=== PATIENT | female | born 2000 ===

== ENCOUNTER 2024-08-22 09:10 | Emergency (ER) | payer OTHER, SELFPAY ==
[2024-08-22 09:11] VITALS: BP 115/81
[2024-08-22 10:29] VITALS: BMI 22.3
[2024-08-22 10:32] VITALS: BP 112/79
--- NOTE | 2024-08-22 10:58 | ED.GENMED ---
Addendum entered and electronically signed by BLACK Osorio 08/22/24 14:58:
Urinalysis reviewed patient has 16�20 white blood cells however greater than 30 squamous cells negative nitrates and no UTI symptoms will send for culture
Original Note:
History of Present Illness
General
Chief Complaint: Headache
Source: patient
Exam Limitations: none
Time Seen by Provider: 08/22/24 10:28
Nursing documentation reviewed up to this point in time: agreed with
History of Present Illness
History of Present Illness:
23 yr old female approx 10 wks (last menstrual period in May) presents today for evaluation of nausea vomiting. Patient has had nausea intermittent vomiting throughout the however it has worsened over the past 24 hours. In addition
she mentioned she had diarrhea yesterday and a little bit today as well. No other sick contacts at home. She also complains of right sided headache. She does not typically get headaches in the past usually once a month that is similar to this
headache but this headache is worse than normal. She denies any recent illness fever chills. Denies any sore throat. She denies any abdominal pain cramping or bleeding. She is followed by [facility] [employer]. She has had a previous normal
ultrasound.
Review of Systems
Review of Systems
Allergies reviewed?: Yes
All Other Systems: ROS reviewed and negative except as documented in HPI and ROS
Constitutional: Reports no symptoms; Denies fever, fatigue or chills
Respiratory: Reports no symptoms
Cardiac: Reports no symptoms
ABD/GI: Reports nausea and vomiting; Denies abdominal pain
: Reports no symptoms; Denies flank pain, urgency or discharge
Musculoskeletal: Reports no symptoms
Skin: Reports no symptoms
Neurological: Reports no symptoms
Psychiatric: Reports no symptoms
Phy Exam
General Physical Exam
General Presentation: no apparent distress
General age: appears stated age
General Skin: warm and dry
General Habitus: normal
General Mental: alert
General Hydration: dry mucous membranes
Cardiovascular Exam
Cardiovascular Exam: tachycardia
Pulmonary Exam
Pulmonary Exam: lungs clear and no respiratory distress
Gastrointestinal Exam
Gastrointestinal Exam: non tender and soft
Neurological Exam
Neurological Exam: alert and oriented x3
Musculoskeletal Exam
Musculoskeletal Exam: full ROM
Skin Exam
Skin Exam: normal color and warm/dry
Psychiatric Exam
Psychiatric Exam: normal mood/affect
Course
Orders/Labs/Results
Orders:
Orders
08/22/24 11:01
IV Insert/Care/Rem.- Treatment PRN
0.9% Sodium Chloride 1000 ml [Nss] 1,000 ml IV BOLUS
Ondansetron Injectable [Zofran] 4 mg IV NOW STA
08/22/24 11:02
Test Result ONCE
08/22/24 11:06
Complete Blood Count/With Diff Urgent
Comprehensive Metabolic Panel Urgent
HCG, Urine Qualitative Screen Urgent
Date Specimen was Collected: 08/22/24
Time Specimen was Collected: 11:05
Urinalysis Reflex To Culture Urgent
Date Specimen was Collected: 08/22/24
Time Specimen was Collected: 11:05
Urine Microscopic Reflex Cult Urgent
Urine Culture Urgent
WENDI Source: U
Specimen Description:
Date Specimen was Collected: 08/22/24
Time Specimen was Collected: 11:05
08/22/24 13:11
Acetaminophen [Tylenol] 650 mg PO NOW STA
Abnormal Lab Results
08/22/24
11:06
WBC 11.1 H 10^3/uL
(4.8-10.8)
MPV 10.6 H fL
(7.4-10.4)
Abs Immat Gran (auto) 0.1 H 10^3/uL
(0-0.05)
Absolute Neuts (auto) 8.9 H 10^3/uL
(1.4-6.5)
Neutrophils % 79.8 H %
(42.2-75.2)
Lymphocytes % 13.8 L %
(20.5-51.1)
Chloride 108 H mmol/L
(98-107)
Creatinine 0.4 L mg/dL
(0.6-1.0)
Leukocyte Esterase Rfl 3+ A
(Negative)
Urine WBC (Reflex) 16-20 A /HPF
(0-5)
Urine Bacteria (Reflex) Many A
(Negative)
Urine Albumin (Reflex) 2+ A
(Neg - Trace)
08/22/24 11:06
08/22/24 11:06
Vital Signs
Initial and Last Documented VS:
Initial Vital Signs
Temp Pulse Resp BP Pulse Ox
97.9 F 115 16 115/81 98
08/22/24 09:11 08/22/24 09:11 08/22/24 09:11 08/22/24 09:11 08/22/24 09:11
Last Documented Vital Signs
Temp Pulse Resp BP Pulse Ox
97.9 F 107 20 101/69 97
08/22/24 09:11 08/22/24 12:01 08/22/24 12:01 08/22/24 13:00 08/22/24 13:00
Work Counselor consulted with Physician
Work Counselor consulted with physician?: Yes
Name of Physician Consulted: Pallavi
MDM/Problems Addressed
MDM/Problems Addressed:
Patient is a 23-year-old female presenting for nausea vomiting also had diarrhea yesterday little bit this morning. She also complains of a headache. She has had some nausea with but is not able to tolerate fluids over the past
24 hours. She also complains of a headache. Simply gets headaches this headache is the same as her previous headaches only slightly worse. Patient presents awake alert she does appear mildly dehydrated on exam. She is mildly tachycardic on
arrival. She had no complaints denies abdominal pain or bleeding. She was given Zofran and fluids here along with Tylenol feeling much better she was able to drink pardeep peter and actually had some small crackers. will give second liter
however patient is clinically better and stable for discharge home. Patient has not vomited here and has had no episodes of diarrhea. She does have prescription for Diclegis at home
*Pulse Oximetry
Patient hypoxic: no
*Critical Care Note
Total Time (30-74mins, 75-104mins- exclusive of procedures): Not Applicable
ED Attending Note
-
Portions of this chart may have been created with voice recognition software.� Occasional wrong word or��sound alike� substitutions may have occurred due to the inherent limitations of voice recognition software.
Discharge Plan
Departure
Patient Disposition: Home (Routine Discharge)
Date of Disposition: 08/22/24
Time of Disposition: 14:08
Patient with high blood pressure during this ER visit?: No
Covid-19: Not Applicable
Discharge Problem:
Nausea & vomiting, Diarrhea
Instructions: Acute Diarrhea, Acute Nausea and Vomiting
Prescriptions:
No Action
1 tab PO DAILY
Referrals:
NONE,* [Family Provider] -
Activity Restrictions/Additional Instructions:
You may take Diclegis at home as previously prescribed by your [employer]. Clear fluid for the next 24 hours followed bland solid foods. Return if any worsening of symptoms. Follow-up with your [employer] in the next several days.
Interventions
Interventions:
*Risk Screen - Suicide Last Done: 08/22/24 09:14
*General Assessment Last Done: 08/22/24 11:12
*Neglect/Abuse Screening Last Done: 08/22/24 09:14
*ED- Fall Risk Assessment Last Done: 08/22/24 10:37
*ED COVID-19 Vaccine History Last Done: 08/22/24 10:29
ED- Neurological Assessment Last Done: 08/22/24 10:37
Discharge Date and Time
Print Language: CZECH
[2024-08-22] MEDS: NSS 1000 IV (11:09)
[2024-08-22] MEDS: ZOFRAN 4 MG IV (11:09)
[2024-08-22 11:15] LABS: Urine Albumin 2+ (Neg - Trace); Urine Bilirubin Negative (Negative); Urine Character Clear (Clear); Urine Color Yellow; Urine Glucose Negative (Negative); Urine Ketone Negative (Negative); Urine Leukocyte 3+ (Negative); Urine Nitrite Negative (Negative); Urine Occult Blood Negative (Negative); Urine Specific Gravity 1.015 (<1.030); Urine Urobilinogen Negative (Neg - 1+)
[2024-08-22 11:25] LABS: HCG, Urine Qualitative Screen Positive
[2024-08-22 11:28] LABS: % Basophils 0.4 % (0-2); % Eosinophils 0.7 % (0-6); % Immature Granulocytes 0.4 % (0-0.5); % Lymphocytes 13.8 % (20.5-51.1); % Monocytes 4.9 % (1.7-9.3); % Neutrophils 79.8 % (42.2-75.2); Absolute Eosinophils 0.1 10^3/uL (0-0.7); Absolute Immature Granulocytes 0.1 10^3/uL (0-0.05); Absolute Lymphocytes 1.5 10^3/uL (1.2-3.4); Absolute Monocytes 0.6 10^3/uL (0.1-0.6); Absolute Neutrophils 8.9 10^3/uL (1.4-6.5); Hematocrit 38.8 % (37.0-47.0); Hemoglobin 13.4 g/dL (12.0-16.0); Mean Corp Hgb Conc. 34.5 g/dL (33.0-37.0); Mean Corpuscular Hgb 29.7 pg (27.0-31.0); Mean Platelet Volume 10.6 fL (7.4-10.4); Nucleated Red Blood Cells % 0 %; Platelet Count 259 10^3/uL (130-400); Red Blood Cell Count 4.51 10^6/uL (4.20-5.40); Red Cell Dist. Width 12.4 % (11.5-14.5); White Blood Cell Count 11.1 10^3/uL (4.8-10.8)
[2024-08-22 11:29] LABS: ALT (SGPT) 20 U/L (0-35); AST (SGOT) 21 U/L (14-36); Albumin 4.1 g/dl (3.5-5.0); Alkaline Phosphatase 63 U/L (38-126); Blood Urea Nitrogen 9 mg/dl (7-17); Calcium 10.1 mg/dl (8.4-10.2); Carbon Dioxide 23 mmol/L (22-30); Chloride 108 mmol/L (98-107); Estimated Creatinine Clearance > 125 ml/min; Glucose 88 mg/dl (70-99); Potassium 3.9 mmol/L (3.5-5.1); Sodium 139 mmol/L (135-145); Total Bilirubin 0.6 mg/dl (0.2-1.3); Total Protein 7.1 g/dl (6.3-8.2); eGFR > 60.00
[2024-08-22 12:01] VITALS: BP 92/70
[2024-08-22 13:00] VITALS: BP 101/69
[2024-08-22] MEDS: TYLENOL 650 MG PO (13:23)
[2024-08-22 13:55] LABS: Urine Squamous Cell >30 /LPF (Few)
[2024-08-22 13:56] LABS: Urine Red Blood Cell 0-2 /HPF (0-2)
[2024-08-22 13:57] LABS: Urine Bacteria Many (Negative); Urine White Cell 16-20 /HPF (0-5)
[2024-08-22 14:00] VITALS: BP 101/71
== END 2024-08-22 15:04 | disposition home or self-care (01) ==
LOC: EMR 09:10
PROVIDERS: Nurse Practitioner; EMERGENCY PHYSICIAN Emergency Medicine
DX: O21.9 Vomiting of pregnancy, unspecified (principal); O99.891 Other specified diseases and conditions complicating pregnancy; R19.7 Diarrhea, unspecified; R51.9 Headache, unspecified; Z3A.10 10 weeks gestation of pregnancy
CPT/HCPCS: 96374; 96361; 99284; 80053; 81003; 81015; 81025; 85025; 87086